=== PATIENT | female | born 1955 | race Caucasian/White ===

== ENCOUNTER → 2016-07-19 | Outpatient (CLI) | payer BC ==
--- NOTE | 2016-07-19 10:16 | MM ---
Reason for exam: screening (asymptomatic). Last mammogram was performed 1 year and 4 months ago. History: Patient is postmenopausal. Family history of breast cancer in maternal grandmother. Physical Findings: A clinical breast exam by your physician is recommended on an annual basis and results should be correlated with mammographic findings. MG Screening Mammo w CAD Bilateral CC and MLO view(s) were taken. Prior study comparison: March 20, 2015, bilateral MG screening mammo w CAD. January 23, 2013, bilateral digital screening mammo w/CAD. There are scattered fibroglandular densities. There is no discrete abnormality. ASSESSMENT: Negative, BI-RAD 1 RECOMMENDATION: Routine screening mammogram of both breasts in 1 year.
== END | disposition home or self-care (01) ==
LOC: RADMAMWWP 08:03
PROVIDERS: ATTEND Internal Medicine Geriatric Medicine
DX: Z12.31 Encounter for screening mammogram for malignant neoplasm of breast (principal)

== ENCOUNTER → 2016-08-09 | Outpatient (CLI) | payer BC ==
--- NOTE | 2016-08-09 22:16 | WWHP ---
DATE OF SERVICE: 08/09/2016 CHIEF COMPLAINT: Patient's here for her routine gynecologic exam. HPI: This is a 60-year-old, G5, P2-1-2-2 with an LMP of 1995 who is status post FRANCOIS and unilateral oophorectomy for benign reasons. The patient states it has been more than 2 years since her last pelvic exam. She is without gynecologic complaints. PAST MEDICAL HISTORY: Depression and elevated cholesterol. Dr. Guerin is her primary care physician. MEDICATIONS: 1. Remeron 30 mg daily. 2. Motrin 200 mg b.i.d. ALLERGIES: SULFA WHICH CAUSED A RASH. PAST SURGICAL HISTORY: FRANCOIS with unilateral oophorectomy in 1995. Thumb surgery in the past, colonoscopy in 2014. Past OB history: 2 vaginal deliveries and 2 spontaneous abortions. The patient also lost a set of twins about 6 months. 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 SOCIAL HISTORY: She denies tobacco and drug use and has about 3 alcoholic drinks per week. She is and is not seeing anybody at this time. 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 FAMILY HISTORY: Father had melanoma and from this. Maternal grandmother had breast cancer. Grandmother had an HI. REVIEW OF SYSTEMS: Weight has been stable. RESPIRATORY: She is getting over a cold. She denies cardiac or GI problems. PHYSICAL EXAM: Blood pressure 156/84. Height 5 feet 7 inches. Weight 139 pounds. Temperature 97.7, pulse 67. This is a well-developed, well-nourished white female who is alert and oriented x3 in no acute distress. HEENT is within normal limits. NECK: Supple without mass or thyromegaly. CHEST AND LUNGS: Clear to auscultation. HEART: Regular rate and rhythm. Breasts are without mass or discharge. Axillary exam is negative for adenopathy. BACK: Negative for CVA tenderness. ABDOMEN: Soft, nontender, without palpable masses. PELVIC EXAM: External genitalia reveals mild to moderate atrophy without lesions. Cervix reveals mild to moderate atrophy without lesions. There is no evidence of prolapse. Bimanual exam is negative for mass or tenderness. Rectovaginal exam negative for mass or tenderness and is negative for occult blood. EXTREMITIES: Nontender. IMPRESSION: 1. A 60-year-old menopausal female, status post total abdominal hysterectomy with unilateral oophorectomy for benign reasons with normal gynecologic exam. 2. Elevated blood pressure. PLAN: 1. Pap smears have been discontinued. 2. Self-breast examination was discussed. 3. Mammogram was just recently done and was benign she will repeat this in one year. 4. We discussed her elevated blood pressure. She will have her blood pressure checked on a regular basis and will follow up with Dr. Guerin for blood pressure elevations. 5. Osteoporosis prevention was discussed. She states she had a bone density test done. We will try to obtain a copy of the bone density test, which she states was done at [facility] about 5 years ago. 6. She will return in one year.
== END | disposition home or self-care (01) ==
LOC: WWCWWP 13:08
PROVIDERS: ATTEND Obstetrics & Gynecology

== ENCOUNTER → 2017-10-10 | Outpatient (CLI) | payer BC ==
--- NOTE | 2017-10-11 08:18 | USB ---
Reason for exam: additional evaluation requested from abnormal screening. History: Patient is postmenopausal. Family history of breast cancer in maternal grandmother. Physical Findings: Nurse did not find any significant physical abnormalities on exam. US Breast Workup Limited RT Right breast ultrasound demonstrates a 0.5 x 0.3 x 0.4cm simple cyst at 3 o'clock that corresponds well to the mammographic finding. Scanned 1-3 o'clock. These results were verbally communicated with the patient and result sheet given to the patient on 10/10/17. ASSESSMENT: Benign, BI-RAD 2 RECOMMENDATION: Return to routine screening mammogram schedule for both breasts.
== END | disposition home or self-care (01) ==
LOC: RADUSWWP 15:34
PROVIDERS: ATTEND Obstetrics & Gynecology
DX: R92.8 Other abnormal and inconclusive findings on diagnostic imaging of breast (principal)

== ENCOUNTER → 2018-05-30 | Outpatient (CLI) | payer BC ==
--- NOTE | 2018-06-01 11:16 | ECHOS ---
STRESS ECHOCARDIOGRAM DATE OF SERVICE: 05/30/2018 INDICATIONS: Screening MEDICATIONS: BASELINE HEART RATE: 69 BASELINE BLOOD PRESSURE: 135/69 MAXIMUM HEART RATE: 153 MAXIMUM BLOOD PRESSURE: 167/82 85% MPHR: 133 100% MPHR: 156 METS: 9.7 MAXIMUM STAGE REACHED: III TOTAL EXERCISE TIME: 8 minutes CLINICAL INFORMATION: Patient was exercised for a total period of 8 minutes. A peak heart rate of 153 was achieved. Maximum blood pressure 167/82 mmHg was noted. Resting EKG shows normal sinus rhythm with normal MO interval and QRS duration and normal ST-T waves. J-point depression with upsloping ST segments are noted. Patient did not complain of any anginal pain during the test. Baseline echocardiographic images reveals normal left ventricular chamber size with normal left ventricular systolic function. In the immediate postexercise period, normal increase in the wall thickness and contractility is noted. FINAL IMPRESSION: 1. This stress echocardiographic study is negative for stress-induced ischemia. 2. EKG portion of the stress test shows equivocal upsloping ST-segment changes, which is not diagnostic of ischemia. 3. Patient's exercise tolerance is average. MMODL / IJN: [id number] /
== END | disposition home or self-care (01) ==
LOC: RADNMMAIN 09:53
PROVIDERS: ATTEND Internal Medicine Geriatric Medicine
DX: Z13.6 Encounter for screening for cardiovascular disorders (principal)
CPT/HCPCS: 93351

== ENCOUNTER → 2019-07-24 | Outpatient (CLI) | payer MEDICARE ==
--- NOTE | 2019-07-25 09:12 | BD ---
EXAMINATION TYPE: Axial Bone Density DATE OF EXAM: 07/24/2019 COMPARISON: 09/19/2017 CLINICAL HISTORY: M 81.0 Height: 66.5 Weight: 144 FRAX RISK QUESTIONS: Alcohol (3 or more units per day): no Family History (Parent hip fracture): yes, mother Glucocorticoids (More than 3mos): no (Ex: prednisone, prednisolone, methylprednisolone, dexamethasone, and hydrocortisone). History of Fracture in Adulthood: no Secondary Osteoporosis: 1. Type 1 Diabetes: no 2. Hyperthyroidism: no 3. Menopause before 45: YES 4. Malnutrition: no 5. Chronic liver disease: no Rheumatoid Arthritis: no Current Tobacco Use: no RISK FACTORS HISTORY OF: Family History of Osteoporosis: possibly Active: yes Diet low in dairy products/other sources of calcium: no Postmenopausal woman: yes Take estrogen and/or progesterone medications: no Lost more than 2 inches in height since high school: no Frequent falls: no Poor Health: no Hyperparathyroidism: no Adrenal Insufficiency: no MEDICATIONS: Prednisone or other steroids: no Thyroid Medications: no Osteoporosis Medications: no Additional Medications: none Additional History: partial hysterectomy about age 40 EXAM MEASUREMENTS: Bone mineral densitometry was performed using the [employer] System. Bone mineral density as measured about the Lumbar spine is: ----- L1-L4(G/cm2): 1.167 T Score Values are as follows: ----- L2: -0.9 ----- L3: 0.2 ----- L4: 0.7 ----- L1-L4: -0.1 Bone mineral density has: decreased -1.6% since study of: 09/19/2017 Bone mineral density about the R hip (g/cm2): 0.805 Bone mineral density about the L hip (g/cm2): 0.832 T Score values are as follows: -----R Neck: -1.7 -----L Neck: -1.5 -----R Total: -0.8 -----L Total: -0.8 Bone mineral density has: decreased -2.2% since study of: 09/19/2017 IMPRESSION: Osteopenia (T Score between -2.5 and -1). There is slightly increased risk of fracture and the patient may be considered for treatment. Re-Screen 2-5 years. NOTE: T-SCORE=SD OF THE YOUNG ADULT MEAN.
--- NOTE | 2019-07-25 14:23 | MM ---
Reason for exam: screening (asymptomatic). Last mammogram was performed 1 year and 10 months ago. History: Patient is postmenopausal. Family history of breast cancer in maternal grandmother. Physical Findings: A clinical breast exam by your physician is recommended on an annual basis and results should be correlated with mammographic findings. MG 3D Screening Mammo W/Cad Bilateral CC and MLO view(s) were taken. Prior study comparison: September 19, 2017, bilateral MG screening mammo w CAD. July 19, 2016, bilateral MG screening mammo w CAD. There are scattered fibroglandular densities. There is no discrete abnormality. No significant changes when compared with prior studies. ASSESSMENT: Negative, BI-RAD 1 RECOMMENDATION: Routine screening mammogram of both breasts in 1 year.
== END | disposition home or self-care (01) ==
LOC: RADMAMWWP 12:34
PROVIDERS: ATTEND Internal Medicine Geriatric Medicine
DX: Z12.31 Encounter for screening mammogram for malignant neoplasm of breast (principal); M85.80 Other specified disorders of bone density and structure, unspecified site; M81.0 Age-related osteoporosis without current pathological fracture; Z78.0 Asymptomatic menopausal state
CPT/HCPCS: 77063; 77067; 77080

== ENCOUNTER → 2019-08-21 | Outpatient (CLI) | payer MEDICARE ==
[2019-08-21 10:59] VITALS: BP 113/74; PULSE 59; RESP 18; TEMP 98.6
--- NOTE | 2019-08-21 11:46 | P.HPOB ---
History of Present Illness H&P Date: 08/21/19 Chief Complaint: The patient is here for her routine gynecologic exam. This is a 63-year-old with an LMP of 1995. The patient is status post FRANCOIS and unilateral oophorectomy for benign reasons. The patient is without gynecologic complaints. Review of Systems Weight has been stable. She denies respiratory, cardiac and G.I. problems. She denies maltreatment or problems with falling. : she denies any significant problems with urinary leakage. Past Medical History Past Medical History: Hyperlipidemia Additional Past Medical History / Comment(s): Osteopenia. 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 History of Any Multi-Drug Resistant Organisms: None Reported Past Surgical History: Hysterectomy Additional Past Surgical History / Comment(s): FRANCOIS and unilateral oophorectomy in 1995. repair of thumb. Colonoscopy 2014. Past Anesthesia/Blood Transfusion Reactions: No Reported Reaction Past Psychological History: Depression Smoking Status: Former smoker Past Alcohol Use History: Occasional (6 per week) Additional Past Alcohol Use History / Comment(s): Quit smoking in the . Past Drug Use History: None Reported Additional History: She is and is not seeing anybody at this time and is not sexually active. 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 - Past Family History Mother Family Medical History: No Reported History Additional Family Medical History / Comment(s): 08/21/19: Living, age 101. Maternal grandmother had breast cancer. Father Family Medical History: Cancer Additional Family Medical History / Comment(s): melanoma Medications and Allergies Home Medications Medication Instructions Recorded Confirmed Type Mirtazapine [Remeron] 30 mg PO HS 08/21/19 08/21/19 History Allergies Allergy/AdvReac Type Severity Reaction Status Date / Time Sulfa (Sulfonamide Allergy Rash/Hives Verified 08/21/19 11:00 Antibiotics) Exam Vital Signs Temp Pulse Resp BP Pulse Ox 08/21/19 10:42 98.6 F 59 L 18 113/74 98 Intake and Output 08/20/19 08/21/19 08/21/19 22:59 06:59 14:59 Other: Weight 63.503 kg Height 5 feet 6 inches, weight 140 pounds, BMI 22.6. This is a well-developed well-nourished white female who is alert and oriented times 3 in no acute distress. HEENT: Within normal limits. NECK: Supple without mass or thyromegaly. CHEST AND LUNGS: Clear to auscultation. HEART: Regular rate and rhythm. BREASTS: Are without mass or discharge. AXILLARY EXAM: Negative for adenopathy. BACK: Negative for CVA tenderness. ABDOMEN: Soft, nontender, without palpable masses. PELVIC EXAM: External genitalia appears normal with mild to moderate atrophy. Vagina appears normal with mild to moderate atrophy. There is no evidence of prolapse. Bimanual examination is negative for mass or tenderness. RECTAL EXAM: Rectovaginal exam is negative for mass or tenderness and is negative for occult blood. EXTREMITIES: Nontender. Additional studies: Mammogram on 07/24/2019 was benign. Bone density testing also done on 07/24/2019 showed osteopenia with minimal change from her previous bone density test. IMPRESSION: 1. 63-year-old menopausal female who is status post FRANCOIS and unilateral oophorectomy for benign reasons with normal gynecologic exam. 2. History of osteopenia. PLAN: 1. Pap smears have been discontinued. 2. Self breast awareness was discussed with the patient. 3. Screening mammogram was done last month and was benign. She will repeat this in 1 year. 4. Osteoporosis prevention was discussed. I have stressed the importance of adequate calcium, vitamin D and regular exercise. Recommended amounts of calcium and vitamin D were also discussed. We will plan on repeating bone density testing in 2-3 years since this was recently done last month. 5. She was advised to do the Cologard stool testing by her PCP and she has to kicked for this. 6. She states she did not get a flu shot last fall. I have recommended that she consider getting flu shots in the fall. 7. She was advised to return in one year for her annual well woman exam.
== END ==
LOC: WWCWWP 10:24
PROVIDERS: ATTEND Obstetrics & Gynecology
DX: Z53.9 Procedure and treatment not carried out, unspecified reason (principal)

== ENCOUNTER → 2021-09-21 | Outpatient (CLI) | payer MEDICARE ==
[2021-09-21 09:31] VITALS: BP 156/88; PULSE 61; RESP 12; TEMP 98.2
--- NOTE | 2021-09-21 10:22 | P.HPOB ---
History of Present Illness H&P Date: 09/21/21 Chief Complaint: The patient is here for her routine gynecologic exam and ma mmogram. This is a 65-year-old with an LMP of 1995. The patient is status post FRANCOIS and unilateral oophorectomy for benign reasons. The patient is without gynecologic complaints. Review of Systems The patient's weight has been stable over the last year. She denies respiratory, cardiac, or G.I. problems. She has been under stress related to health issues with family members. Past Medical History Past Medical History: Hyperlipidemia Additional Past Medical History / Comment(s): Osteopenia. 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 History of Any Multi-Drug Resistant Organisms: None Reported Past Surgical History: Hysterectomy Additional Past Surgical History / Comment(s): FRANCOIS and unilateral oophorectomy in 1995. repair of thumb. Colonoscopy 2014. Past Anesthesia/Blood Transfusion Reactions: No Reported Reaction Past Psychological History: Depression Smoking Status: Former smoker Past Alcohol Use History: Occasional (6 per week) Additional Past Alcohol Use History / Comment(s): Quit smoking in the 1970s. Past Drug Use History: None Reported Additional History: She is and is not seeing anybody at this time and has not been sexually active during the past year. 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 - Past Family History Mother Family Medical History: No Reported History Additional Family Medical History / Comment(s): 08/21/19: Living, age 101. Maternal grandmother had breast cancer. Father Family Medical History: Cancer Additional Family Medical History / Comment(s): melanoma Medications and Allergies Home Medications Medication Instructions Recorded Confirmed Type Mirtazapine [Remeron] 30 mg PO HS 08/21/19 09/21/21 History Allergies Allergy/AdvReac Type Severity Reaction Status Date / Time Sulfa (Sulfonamide Allergy Rash/Hives Verified 09/21/21 09:23 Antibiotics) Exam Vital Signs Temp Pulse Resp BP Pulse Ox 09/21/21 09:24 98.2 F 61 12 156/88 98 Intake and Output 09/20/21 09/21/21 09/21/21 22:59 06:59 14:59 Other: Weight 63.049 kg Height 5 feet 7 inches, weight 139 pounds, BMI 21.8. This is a well-developed well-nourished white female who is alert and oriented times 3 in no acute distress. HEENT: Within normal limits. NECK: Supple without mass or thyromegaly. CHEST AND LUNGS: Clear to auscultation. HEART: Regular rate and rhythm. BREASTS: Are without mass or discharge. AXILLARY EXAM: Negative for adenopathy. BACK: Negative for CVA tenderness. ABDOMEN: Soft, nontender, without palpable masses. PELVIC EXAM: External genitalia appears normal with mild atrophy. Vagina appears normal with mild atrophy. There is no evidence of prolapse. Bimanual examination is negative for mass or tenderness. RECTAL EXAM: Rectovaginal exam is negative for mass or tenderness and is negative for occult blood. EXTREMITIES: Nontender. IMPRESSION: 1. 65-year-old menopausal female who is status post FRANCOIS with unilateral oophorectomy for benign reasons, with normal gynecologic exam. 2. History of osteopenia. 3. Elevated blood pressure. PLAN: 1. Pap smears have been discontinued. 2. Self breast awareness was discussed with the patient. We have also discussed symptoms associated with inflammatory breast cancer. 3. Screening mammogram will be done today. 4. Osteoporosis prevention was discussed. I have stressed the importance of adequate calcium, vitamin D and regular exercise. Recommended amounts of calcium and vitamin D were also discussed. I have recommended repeating bone density testing since it has been about 2 years since since her last one. The order slip was given to the patient for this. 5. It has been about 7 years since her last colonoscopy. She is not sure when she is supposed to have another one done. She has discussed using Cologuard with her PCP. She will again discussed colorectal screening with her PCP to determine the best approach. 6. We have discussed her elevated blood pressure. I have recommended that she check her own blood pressure on a regular basis since she does have a blood pressure cuff. She will follow up with her PCP regarding blood pressure elevations. She states she has not been taking Crestor as prescribed by her PCP. I have recommended that she take this medication if her PCP recommended it. 7. She was advised to return in one year for her annual well woman exam.
--- NOTE | 2021-09-22 15:10 | MM ---
Reason for exam: screening (asymptomatic). Last mammogram was performed 2 years and 2 months ago. History: Patient is postmenopausal. Family history of breast cancer in maternal grandmother. Physical Findings: A clinical breast exam by your physician is recommended on an annual basis and results should be correlated with mammographic findings. MG 3D Screening Mammo W/Cad Bilateral CC and MLO view(s) were taken. Prior study comparison: July 24, 2019, bilateral MG 3d screening mammo w/cad. September 19, 2017, bilateral MG screening mammo w CAD. There are scattered fibroglandular densities. There is no discrete abnormality. No significant changes when compared with prior studies. ASSESSMENT: Negative, BI-RAD 1 RECOMMENDATION: Routine screening mammogram of both breasts in 1 year.
== END ==
LOC: WWCWWP 09:11
PROVIDERS: ATTEND Obstetrics & Gynecology
DX: Z01.419 Encounter for gynecological examination (general) (routine) without abnormal findings (principal); Z12.31 Encounter for screening mammogram for malignant neoplasm of breast; Z90.710 Acquired absence of both cervix and uterus; E78.5 Hyperlipidemia, unspecified; Z87.39 Personal history of other diseases of the musculoskeletal system and connective tissue; F32.A Depression, unspecified; Z87.891 Personal history of nicotine dependence; Z80.3 Family history of malignant neoplasm of breast; Z88.2 Allergy status to sulfonamides; I10 Essential (primary) hypertension
CPT/HCPCS: 77063; 77067

== ENCOUNTER → 2021-10-06 | Outpatient (CLI) | payer MEDICARE ==
--- NOTE | 2021-10-06 19:51 | BD ---
EXAMINATION TYPE: Axial Bone Density DATE OF EXAM: 10/06/2021 COMPARISON: NONE CLINICAL HISTORY: 65 years year old Female. ICD-10 CODE: M81.0 AGE-RELATED OSTEOPOROSIS W/O CURRENT PATHOLO Height: 66 Weight: 138 FRAX RISK QUESTIONS: Family History (Parent hip fracture): YES Secondary Osteoporosis: YES 3. Menopause before 45: YES RISK FACTORS HISTORY OF: Family History of Osteoporosis: YES, MOTHER WITH FX Postmenopausal woman: YES <45 YRS OLD Hyperparathyroidism: NO Adrenal Insufficiency: NO MEDICATIONS: Additional Medications: REMERON, Additional History: DEPRESSION, EXAM MEASUREMENTS: Bone mineral densitometry was performed using the [employer] System. Bone mineral density as measured about the Lumbar spine is: ----- L1-L4(G/cm2): 1.155 T Score Values are as follows: ----- L1: -1.0 ----- L2: -1.1 ----- L3: 0.3 ----- L4: 0.7 ----- L1-L4: -0.2 Bone mineral density has: Decreased -0.7% since study of: 07.24.2019 Bone mineral density about the R hip (g/cm2): 0.888 Bone mineral density about the L hip (g/cm2): 0.890 T Score values are as follows: -----R Neck: -1.6 -----L Neck: -1.7 -----R Total: -0.9 -----L Total: -0.9 Bone mineral density has: Decreased -2.0% since study of: 07.24.2019 FRAX%s: The graph provided illustrates a 25.4% chance for a major osteoporotic fx and a 3.5% chance f or the hips probability for fx in 10 years time. IMPRESSION: Osteopenia (T Score between -2.5 and -1). There is slightly increased risk of fracture and the patient may be considered for treatment. Re-Screen 2-5 years. NOTE: T-SCORE=SD OF THE YOUNG ADULT MEAN.
== END | disposition home or self-care (01) ==
LOC: RADBDWWP 11:11
PROVIDERS: ATTEND Internal Medicine Geriatric Medicine
DX: M85.89 Other specified disorders of bone density and structure, multiple sites (principal); Z78.0 Asymptomatic menopausal state
CPT/HCPCS: 77080

== ENCOUNTER → 2023-12-05 | Outpatient (CLI) | payer MEDICARE ==
--- NOTE | 2023-12-05 13:00 | XR ---
EXAMINATION TYPE: XR chest 2V DATE OF EXAM: 12/05/2023 COMPARISON: None HISTORY: 67-year-old female cough and shortness of breath for 2 weeks. J40 BRONCHITIS, NOT SPECIFIED ACUTE OR CHRONIC TECHNIQUE: Frontal and lateral views FINDINGS: The cardiomediastinal silhouette, aorta, and pulmonary vasculature are within normal limits. Lungs an d pleural spaces are clear. IMPRESSION: No acute cardiopulmonary process.
== END | disposition home or self-care (01) ==
LOC: RADXRMAIN 08:32
PROVIDERS: ATTEND Internal Medicine Geriatric Medicine
DX: J40 Bronchitis, not specified as acute or chronic (principal)
CPT/HCPCS: 71046

== ENCOUNTER → 2024-01-26 | Outpatient (CLI) | payer MEDICARE ==
--- NOTE | 2024-02-16 13:42 | CA ---
Stress Echo Report Irlanda Guido Age: 68 Gender: F : 1955 Exam Date: 01/26/2024 09:39 Exam Location: [place] [facility] Ht (in): 67 Wt (lb): 138 Ordering Physician: Referring Physician: CLAUDIA GUERIN, Geothermal Installer: [employer] Technologist Procedure CPT: Indication: ICD-9 Codes: Rhythm: Patient History: Shortness of breath on exertion. Cardiac Medications: Medications in past 24 hours: Contrast: Stress Results Protocol: Alfa Total dose(mL): Exercise Duration (min:sec): 9:[address] Depression (mm): Angina Score: Simpson Score: METS: 10.5 Resting HR: 61 Resting BP: 132 / 74 Peak HR: 157 Peak BP: 208 / 109 Max Predicted HR: 150 105 % Max Predicted HR Target HR: 128 Double Product: 56089 Stress Summary: Patient exercised on Alfa protocol for 9 minutes 20 seconds achieving 10.5 METs. Patient was able to achieve 105% of max heart rate BP Response: Reason for Termination: MAX EXERTION/TARGET HR Cardiac Symptoms: DIFFICULTY IN BREATHING ECG Analysis Resting ECG: Sinus rhythm with T-wave inversions in lead III Stress EC mm ST depressions noticed in inferolateral leads at peak stress Arrhythmia: There were no arrhythmias noticed during the stress test in no ectopic beats Echo Analysis Resting Echo: There is normal global and segmental systolic function with no resting regional wall motion abnormality Peak Echo Analysis: At peak stress there is an observation of hypokinesia noticed in inferior and inferolateral wall. MEASUREMENTS (Male/Female) Normal Values CONCLUSIONS Abnormal treadmill stress echo Good exercise tolerance for age achieving 10.5 METS Ischemic ECG and echocardiographic response to treadmill exercise Normal hemodynamic response to treadmill exercise Dr Guerni was notified Dr Harish Bird (Electronically Signed) Final Date: 26 January 2024 11:45
== END | disposition home or self-care (01) ==
LOC: RADNMMAIN 08:59
PROVIDERS: ATTEND Internal Medicine Geriatric Medicine
DX: R94.39 Abnormal result of other cardiovascular function study (principal); I20.9 Angina pectoris, unspecified
CPT/HCPCS: 93351

== ENCOUNTER → 2024-02-08 | Day surgery (SDC) | payer MEDICARE ==
[~2024-02-08] MED LIST: ALPRAZolam 0.25 MG TAB PO PRN; ASPIRIN 325 MG TAB PO STA; ASPIRIN 81 MG PO SCH; ATORVASTATIN 20 MG TAB PO SCH; ERGOCALCIFEROL 1,250 MCG (50,000 IU) CAPSULE PO SCH; HEPARIN SODIUM 1,000 UN/ML (10ML VL) ONE; LIDOCAINE 1% INJ 10MG/ML (20 ML MDV) ONE; METOPROLOL TARTRATE 25 MG TAB PO SCH; MIRTAZAPINE 15 MG TAB PO SCH; NITROGLYCERIN SL TABS 0.4 MG TAB SUBLINGUAL PRN; RX INFO: IV CONTRAST WAS GIVEN 1 EACH MISC MISCELLANE PRN; SODIUM CHLORIDE 0.9% 1,000 ML IV SCH; VERAPAMIL 2.5 MG/ML 2 ML AMP ONE; fentaNYL (PF) 50 MCG/ML 2 ML AMP ONE
[2024-02-08] MEDS: SODIUM CHLORIDE 0.9% 1,000 ML in EMPTY BAG 1 BAG IV SCH (06:17)
[2024-02-08] MEDS: ALPRAZolam 0.5 MG TAB PO PRN (06:23)
[2024-02-08 06:34] VITALS: TEMP 98
[2024-02-08 07:05] LABS: Basophils % (A) 1 %; Eosinophils # (A) 0.2 k/uL (0-0.7); Eosinophils % (A) 2 %; HCT 43.2 % (34.0-46.0); HGB 14.2 gm/dL (11.4-16.0); Lymphocytes # (A) 2.7 k/uL (1.0-4.8); Lymphocytes % (A) 35 %; MCH 29.4 pg (25.0-35.0); MCHC 32.8 g/dL (31.0-37.0); MCV 89.6 fL (80.0-100.0); Mean Platelet Volume 8.4; Monocytes # (A) 0.3 k/uL (0-1.0); Monocytes % (A) 4 %; Neutrophils # (A) 4.4 k/uL (1.3-7.7); Neutrophils % (A) 57 %; Platelet Count 290 k/uL (150-450); RBC 4.82 m/uL (3.80-5.40); RDW 13.5 % (11.5-15.5); WBC 7.7 k/uL (3.8-10.6)
[2024-02-08] MEDS: fentaNYL (PF) 50 MCG/ML 2 ML AMP IVP ONE (07:50)
[2024-02-08] MEDS: LIDOCAINE 1% INJ 10MG/ML (20 ML MDV) SQ ONE (07:54)
[2024-02-08] MEDS: VERAPAMIL 2.5 MG/ML 2 ML AMP INTRAARTER ONE (07:56)
[2024-02-08] MEDS: IOPAMIDOL-370 100ML BTL INJ ONE (08:06)
--- NOTE | 2024-02-08 08:21 | P.CARDCATH ---
Date of Procedure: 02/08/24 Description of Procedure: Cardiac Catheterization: The patient is a 68-year-old female with a history of hyperlipidemia, who has been complaining recently for occasional dyspnea on exertion. She had a stress echocardiogram that showed evidence of inferior and inferolateral wall ischemia. Recommendations were made regarding cardiac catheterization, the risks and the complications were discussed with the patient who is in full understanding and agreement. Procedure Description: Patient was brought to parking lot laborer in fasting semi-sedated state after receiving Fentanyl and Benadryl achieiving moderate conscious sedated state. Using Xylocaine Anesthesia and modified Seldinger technique, a 6-Iranian sheath was introduced in the right radial artery . Subsequently, selective coronary angiography was performed using a 5-Iranian 3.5 bend [place] catheter. Multiple views of the coronary artery including hemiaxial views were obtained. The right [place] catheter was used to cross the aortic valve and LVEDP was calculated. Following that, catheter and sheath were removed. Hemostasis was obtained with deployment of vascular band . There was no immediate complication. Patient was returned to room in stable condition. Of note, the patient received a total of 3500 units of intravenous heparin as well as intra-arterial verapamil. Findings: Left main: This is a short vessel, bifurcating into LAD and left circumflex, left main has no obstructive disease LAD: This is a large size vessel, reaching to the apex, tortuous in the mid and distal segment. It gives rise to a large diagonal branch proximally. The LAD and its branches have no obstructive disease Left circumflex: This is a nondominant vessel, giving rise to a large obtuse marginal branch that has no obstructive disease RCA: This is a dominant vessel, bifurcating into PDA and PLV, the right coronary artery and its branches have no significant obstructive disease. Left Ventriculogram: Not performed Hemodynamics: There was no gradient across aortic valve, LVEDP was 6-10 mmHg Conclusion: 1. Normal coronary arteries 2. Right dominance 3. Normal LVEDP Recommendations: I see no evidence of obstructive disease, her stress test represents a false positive. I have recommended to continue medical therapy. The findings and the recommendations were discussed with the patient and the family and they were in full understanding and agreement. Duration of sedation is 13 minutes.
[2024-02-08 08:24] LABS: African American GFR (CKD) >90 (>60 ml/min/1.73 sqM); Anion Gap 4 mmol/L; Blood Urea Nitrogen 12 mg/dL (7-17); Calcium 9.2 mg/dL (8.4-10.2); Carbon Dioxide 26 mmol/L (22-30); Chloride 109 mmol/L (98-107); Glucose 101 mg/dL (74-99); Non-African American GFR(CKD) >90 (>60 ml/min/1.73 sqM); Potassium 4.3 mmol/L (3.5-5.1); Sodium 139 mmol/L (137-145)
[2024-02-08 09:03] VITALS: RESP 14
[2024-02-08 10:16] VITALS: BP 132/63; PULSE 52
== END | disposition home or self-care (01) ==
LOC: CATHCVL 05:46
PROVIDERS: ATTEND Internal Medicine Interventional Cardiology
DX: R94.39 Abnormal result of other cardiovascular function study
CPT/HCPCS: 80048; 85025; 93458

== ENCOUNTER → 2024-05-01 | Outpatient (CLI) | payer MEDICARE ==
--- NOTE | 2024-05-02 10:48 | BD ---
EXAMINATION TYPE: Axial Bone Density DATE OF EXAM: 05/01/2024 CLINICAL HISTORY: 68 years old Female. ICD-10 CODE: M81.0 DISORDER OF BON , Additional History: Height: 66 Weight: 139.2 FRAX RISK QUESTIONS: Alcohol (3 or more units per day): no Family History (Parent hip fracture): mother and father Glucocorticoids (More than 3mos): no (Ex: prednisone, prednisolone, methylprednisolone, dexamethasone, and hydrocortisone). History of Fracture in Adulthood: no Secondary Osteoporosis: 1. Type 1 Diabetes: no 2. Hyperthyroidism: no 3. Menopause before 45: no 4. Malnutrition: no 5. Chronic liver disease: no Rheumatoid Arthritis: no Current Tobacco Use: no RISK FACTORS HISTORY OF: Hip Fracture (Right/Left): no Spine Fracture: no History of Wrist Fracture: no Surgery to When: MEDICATIONS: Thyroid Medications: no Osteoporosis Medications: no EXAM MEASUREMENTS: Bone mineral densitometry was performed using the [employer]. Bone mineral density as measured about the Lumbar spine is: ----- L1-L4(G/cm2): 1.154 T Score Values are as follows: ----- L1: -1.5 ----- L2: -0.9 ----- L3: 0.0 ----- L4: 0.8 ----- L1-L4: -0.2 Z Score Values are as follows: ----- L1: 0.3 ----- L2: 0.8 ----- L3: 1.7 ----- L4: 2.6 ----- L1-L4: 1.5 Bone mineral density has: decreased -0.1 % since study of: 10/06/2021 Bone mineral density about the R hip (g/cm2): 0.833 Bone mineral density about the L hip (g/cm2): 0.829 T Score values are as follows: -----R Neck: -1.6 -----L Neck: -1.4 -----R Total: -1.4 -----L Total: -1.4 Z Score values are as follows: -----R Neck: 0.1 -----L Neck: 0.3 -----R Total: 0.1 -----L Total: 0.1 Bone mineral density has: decreased -6.5 % since study of: 10/06/2021 FRAX%s: The graph provided illustrates a 15.4% chance for a major osteoporotic fx and a 3.5% chance f or the hips probability for fx in 10 years time. IMPRESSION: Osteopenia (T Score between -2.5 and -1). There is slightly increased risk of fracture and the patient may be considered for treatment. Re-Screen 2-5 years. NOTE: T-SCORE=SD OF THE YOUNG ADULT MEAN. [facility], , 05/02/2024 10:46 AM
--- NOTE | 2024-05-02 15:03 | MM ---
Reason for Exam: Screening (asymptomatic). Last mammogram was performed 1 year(s) and 6 month(s) ago. Patient History: Menarche at age 11. First Full-Term at age 25. Left ovary removed at age 40. Hysterectomy at age 40. Postmenopausal. Maternal grandmother had breast cancer. Risk Values: Cassandra 5 year model risk: 1.9%. NCI Lifetime model risk: 5.6%. Prior Study Comparison: 07/24/2019 Bilateral Screening Mammogram, [facility]. 09/21/2021 Bilateral Screening Mammogram, [facility]. 10/18/2022 Bilateral MG 3D screening mammo w/cad, [facility]. Tissue Density: There are scattered areas of fibroglandular density. Findings: Analyzed By CAD. There is no suspicious group of microcalcifications or new suspicious mass in either breast. Overall Assessment: Negative, BI-RAD 1 Management: Screening Mammogram of both breasts in 1 year. . Patient should continue monthly self-breast exams. A clinical breast exam by your physician is recommended on an annual basis. This exam should not preclude additional follow-up of suspicious palpable abnormalities. Note on Cassandra scores and lifetime risk: 1. A Cassandra score greater than 3% is considered moderate risk. If this is the case, consider specialist referral to assess eligibility for a risk reducing agent. 2. If overall lifetime risk for the development of breast cancer is 20% or higher, the patient may qualify for future screening with alternating mammogram and breast MRI. [facility], , 05/02/2024 3:00 PM. Electronically signed and approved by: Darwin Tran M.D. Radiologis
== END | disposition home or self-care (01) ==
LOC: RADMAMWWP 12:50
PROVIDERS: ATTEND Internal Medicine Geriatric Medicine
DX: Z12.31 Encounter for screening mammogram for malignant neoplasm of breast (principal); M85.89 Other specified disorders of bone density and structure, multiple sites; R92.323 Mammographic fibroglandular density, bilateral breasts; M81.0 Age-related osteoporosis without current pathological fracture; Z80.3 Family history of malignant neoplasm of breast; Z78.0 Asymptomatic menopausal state; Z90.722 Acquired absence of ovaries, bilateral
CPT/HCPCS: 77063; 77067; 77080